=== PATIENT | female | born 1995 | race Caucasian/White ===

== ENCOUNTER 2017-11-22 20:56 | Emergency (ER) | payer OTHER ==
[2017-11-22] MEDS ORDERED: ONDANSETRON 4 MG/2 ML VIAL ONE (21:08)
[2017-11-22] MEDS ORDERED: NS 1,000 ML IV ONE (21:11)
[2017-11-22] MEDS ORDERED: ONDANSETRON 4 MG/2 ML VIAL IVP ONE (21:11)
--- NOTE | 2017-11-22 21:14 | EDPHY ---
H & P Stated Complaint: nausea/vomiting/diarrhea since last . Time Seen by Provider: 11/22/17 20:59 HPI/ROS: CHIEF COMPLAINT: Vomiting and diarrhea History by patient HISTORY OF PRESENT ILLNESS: 22-year-old otherwise healthy young woman presents complaining of 3 days of persistent vomiting and diarrhea. Patient states this started with some nausea 3 days ago and then has progressively worsened. The last 2 days she has been having mostly vomiting however, today she has only vomited once. Yesterday she had multiple episodes of watery, nonbloody diarrhea. Today she says she does not think she has anything left in her and nothing has come out. She has been taking some fluids but vomits when she tries to eat solid food. She has had a subjective fever at home. She took a Phenergan at home with minimal relief. She denies any abdominal pain but says she gets a burning sensation right before she is going to vomit or passed stool. She denies any back pain. She denies . Her last menses was 1 week ago. She denies any urinary symptoms. 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 REVIEW OF SYSTEMS: As in HPI, and all other systems reviewed and are negative Source: Patient - Personal History LMP (Females 10-55): 1-7 Days Ago Current Tetanus Diphtheria and Acellular Pertussis (TDAP): Yes - Medical/Surgical History Hx Asthma: No Hx Chronic Respiratory Disease: No Hx Diabetes: No Hx Cardiac Disease: No Hx Renal Disease: No Hx Cirrhosis: No Hx Alcoholism: No Hx HIV/AIDS: No Hx Splenectomy or Spleen Trauma: No Other PMH: none - Social History Smoking Status: Never smoked - Physical Exam Exam: General Appearance: Alert, nontoxic,. Eyes: Pupils equal and round, extraocular movements intact, no pallor or injection. Mouth: Mucous membranes slightly moist. Pharynx clear Respiratory: Normal, effort, lungs are clear to auscultation. No wheezes, rales or rhonchi. Cardiovascular: Regular rate and rhythm. S1, S2, no murmurs, gallops or rubs appreciated Gastrointestinal: bowel sounds present, Abdomen is soft and nondistended, nontender, no masses Back: No CVA tenderness, no bony tenderness Neurological: Awake, alert and oriented x 3, no pronator drift, normal gait, no pronator drift Skin: Warm and dry, no rashes. Musculoskeletal: No deformities or tenderness. Extremities: full range of motion, no edema Psychiatric: Patient has normal affect, there is no agitation. Constitutional: Initial Vital Signs Temperature (C) 37.1 C 11/22/17 21:06 Heart Rate 109 H 11/22/17 21:06 Respiratory Rate 16 11/22/17 21:06 Blood Pressure 132/99 H 11/22/17 21:06 O2 Sat (%) 97 11/22/17 21:06 O2 Delivery Mode Room Air Allergies/Adverse Reactions: Penicillins Allergy (Verified 11/22/17 21:05) Sulfa (Sulfonamide Antibiotics) Allergy (Verified 11/22/17 21:05) Home Medications: Medication Instructions Recorded NK [No Known Home Meds] 11/22/17 Medical Decision Making ED Course/Re-evaluation: 22-year-old woman presents complaining of nausea, vomiting and diarrhea for 3 days and clinically has mild dehydration with some tachycardia and dry mucous membranes. There is no evidence of significant systemic toxicity or electrolyte abnormalities. Patient is not . Patient was given a L of IV normal saline as well as 4 of Zofran IV after which she was feeling better and her heart rate improved. We discussed home care and return precautions. She was discharged home in improved condition. - Data Points Laboratory Results: Laboratory Results 11/22/17 21:20 11/22/17 11/22/17 11/22/17 21:50 21:20 21:20 Sodium 137 mEq/L mEq/L (135-145) Potassium 3.4 mEq/L mEq/L (3.3-5.0) Chloride 100 mEq/L mEq/L (97-110) Carbon Dioxide 21 mEq/l L mEq/l (22-31) Anion Gap 16 mEq/L mEq/L (8-16) BUN 12 mg/dL mg/dL (7-23) Creatinine 0.8 mg/dL mg/dL (0.6-1.0) Estimated GFR > 60 Glucose 102 mg/dL H mg/dL (70-100) Calcium 9.4 mg/dL mg/dL (8.5-10.4) Beta HCG, Qual NEGATIVE Urine Color Pending Urine Appearance Pending Urine pH Pending Ur Specific [place] Pending Urine Protein Pending Urine Ketones Pending Urine Blood Pending Urine Nitrate Pending Urine Bilirubin Pending Urine Urobilinogen Pending Ur Leukocyte Esterase Pending Urine RBC Pending Urine WBC Pending Ur Epithelial Cells Pending Urine Glucose Pending Medications Given: Discontinued Medications Sodium Chloride (Ns) 1,000 mls @ 0 mls/hr IV EDNOW ONE; Wide Open PRN Reason: Protocol Stop: 11/22/17 21:12 Last Admin: 11/22/17 21:21 Dose: 1,000 mls Ondansetron HCl (Zofran) 4 mg IVP EDNOW ONE Stop: 11/22/17 21:12 Last Admin: 11/22/17 21:21 Dose: 4 mg Departure - Departure Disposition: Home, Routine, Self-Care Clinical Impression: Nausea vomiting and diarrhea, Dehydration, mild Condition: Good Instructions: Gastroenteritis (ED) Additional Instructions: You were seen by Dr. Shahnaz Kiran today. Continue to take in plenty of fluids and make sure you are getting a little bit of sugar and salts. You should eat you feel like eating. You may use Zofran tablets as needed for nausea and vomiting. It is safe to take [id number] Imodium for your diarrhea. Return for any worsening or new concerns. Referrals: NONE *PRIMARY CARE P,. [Primary Care Provider] - As per Instructions
[2017-11-22] MEDS ORDERED: ONDANSETRON 4MG PREPACK#2 BTL TAKEHOME ONE (22:02)
[2017-11-22 22:04] VITALS: BP 110/75
== END 2017-11-22 22:15 | disposition home or self-care (01) ==
LOC: CED 20:56
DX: R19.7 Diarrhea, unspecified (principal); R11.2 Nausea with vomiting, unspecified; E86.0 Dehydration; E86.9 Volume depletion, unspecified
CPT/HCPCS: 80048-PO; 81003-PO; 81015-PO; 84703-PO; J2405